=== PATIENT | female | born 1945 | race Caucasian/White ===

== ENCOUNTER 2023-08-11 16:20 | Observation (INO) ==
--- NOTE | 2023-08-11 16:55 | ED Triage Note ---
Date of Service August 11, 2023 Provider in Triage Author: Paula Brian History of Present Illness This patient was briefly evaluated while in triage. An abbreviated physical exam was performed. This patient is a 78-year-old Female who presents to the ED for evaluation of SOB. History of chronic SOB, but symptoms a lot worse recently. Was at the [place] ER 6 months ago, but they couldn't find out what was wrong. She went back to the ER in [place] about 1 week ago and was diagnosed with bronchitis. She had an appt with pulmonology this week, but the appt got changed. Still complaining of a lot of SOB and trouble bending over or with any movement because she feels like she has to gasp for air. They have a gas stove and heat their house with coal. Physical Exam GENERAL: The patient appears pale on exam. Non-toxic and in no acute distress. HEENT: Pupils equal. No obvious scleral icterus. HEART: Regular rate and rhythm. LUNGS: Clear to auscultation. No accessory muscle use. ABDOMEN: Soft, minimal tenderness to palpation. NEURO: Alert and oriented. No obvious neurological deficits on quick neuro exam. MUSCULOSKELETAL: No calf tenderness bilaterally. Initial orders for labs and / or imaging were placed and patient was placed in the waiting area until a bed is available. Please see further documentation for the full ED course. MDM / Impression Impression Impression: Acute GI bleeding, LARA (dyspnea on exertion), Hernia, hiatal
[2023-08-11 18:10] LABS: Albumin Globulin Ratio 1.2 (0.9-2); Albumin Level 4.2 gm/dl (3.4-5.0); BUN Creatinine Ratio 12.6 (10-20); Bilirubin,Total 0.5 mg/dl (0.2-1.0); Calcium 10.2 mg/dl (8.6-10.3); Creatinine Clr Calc Pharmacy 37.5 ml/min; Est GFR (African American) 50.6 ml/min; Est GFR (Non-African American) 43.7 ml/min; Globulin 3.4 gm/dl (2.5-4.0); Magnesium 1.9 mg/dl (1.7-2.4); Potassium 4.2 mmol/L (3.5-5.1); Total Protein 7.6 gm/dl (6.0-8.3)
[2023-08-11 18:16] LABS: Troponin I High Sensitivity 4.2 pg/ml (0-14)
[2023-08-11 18:20] LABS: Partial Thromboplastin Ratio 0.9; Partial Thromboplastin Time 26 Seconds (21-31); Prothrombin Time 11.2 Seconds (9.0-12.0)
[2023-08-11] MEDS ORDERED: PANTOprazole 40 MG in SYRINGE 0 ML IV ONE (18:21)
[2023-08-11] MEDS ORDERED: FAMOTIDINE 20MG IV PUSH 20 MG/5 ML SYR IV STA (18:21)
[2023-08-11 18:24] LABS: Hematocrit (blood only) 23.1 % (37.0-47.0); Mean Corpuscular Hemoglobin 15.9 pg (25.0-34.0); Mean Corpuscular Volume 61.3 fL (80.0-100.0); Platelet Count 253 K/uL (130-400); RDW Coefficient of Variation 22.9 % (11.5-14.5); RDW Standard Deviation 48.3 fL (36.4-46.3); Red Blood Count 3.77 M/uL (4.20-5.40); White Blood Count 4.49 K/ul (4.8-10.8)
[2023-08-11] MEDS ORDERED: SODIUM CHLORIDE 0.9% 250 ML IV PRN (18:25)
--- NOTE | 2023-08-11 18:25 | History & Physical Report ---
Date of Service August 11, 2023 History of Present Illness Primary Care Provider: Jazmin Khoury MD Cee Erazo is a 78 year old female who presents to the ER with Allergies Allergy/AdvReac Type Severity Reaction Status Date / Time amlodipine [From [facility]] Allergy Severe "TIGHT Verified 06/10/23 14:33 THROAT" Iodinated Contrast Media Allergy Rash Verified 06/10/23 14:33 iodine Allergy Rash Verified 06/10/23 14:33 Home Medications Medication Instructions Recorded Confirmed Type magnesium oxide 500 mg tablet 500 mg PO QPM 02/22/19 06/10/23 History calcium 600 mg capsule 600 mg PO TID 11/15/20 06/10/23 History lutein 20 mg capsule 20 mg PO QPM 11/15/20 06/10/23 History vitamin E 200 unit capsule 200 unit PO DAILY 02/11/22 06/10/23 History minoxidil 10 mg tablet 10 mg PO DAILY #90 tabs 01/21/23 06/10/23 Rx mirtazapine 45 mg tablet 45 mg PO HS #90 tabs 02/04/23 06/10/23 Rx terazosin 2 mg capsule 2 mg PO HS #90 caps 02/05/23 06/10/23 Rx levothyroxine 112 mcg tablet 112 mcg PO DAILY #90 tabs 04/17/23 06/10/23 Rx losartan 100 mg tablet 100 mg PO DAILY #90 tabs 05/01/23 06/10/23 Rx tramadol 50 mg tablet 100 mg (2 x 50 mg) PO TID PRN pain 05/29/23 06/10/23 Rx #180 tabs pantoprazole 40 mg tablet,delayed See Rx Instructions .Route 06/10/23 History release .COMPLEX PRN atenolol 100 mg tablet 100 mg PO DAILY #90 tabs 07/04/23 Rx hydrocodone 7.5 mg-acetaminophen 1 tab PO QID PRN pain #100 tabs 07/15/23 Rx 325 mg tablet alprazolam 1 mg tablet 1 mg PO TID PRN anxiety #90 tabs 07/28/23 Rx zolpidem 10 mg tablet 10 mg PO HS #30 tabs 07/28/23 Rx Past Med/Surg History Medical History Cervical radiculopathy Degenerative disc disease, cervical Osteoarthritis Anxiety and depression Tarsal tunnel syndrome "IN MY FEET" Insomnia Environmental and seasonal allergies Acid reflux Fibromyalgia Hypothyroidism Lumbar degenerative disc disease Hypertension Surgical History Nausea and vomiting after administration of anesthetic agent History of thyroidectomy, subtotal D/T OVERACTIVE THYROID History of tooth extraction History of endoscopic sinus surgery History of breast biopsy (1991) BENIGN History of total knee arthroplasty (2007) LEFT Family History Mother Hypertension Father Lung cancer Other No family history of adverse response to anesthesia Denies family history of Colon cancer Ovarian cancer Prostate cancer Myocardial infarction Breast cancer Colorectal cancer Social History Smoking Status: Never smoker Second Hand Exposure: No; Do You Dip or Chew Tobacco: No; Hx Alcohol Use: No Hx Substance Use: No Preferred Language: Croatian Communication Ability: Effective Visual Impairment: No Limitations Hearing Ability: Normal Lifestyle Coordinator Required: No Beliefs That Will Affect Care: None marital status: Current Living Situation: Spouse current occupational status: retired Feels Safe at Home: Yes Childhood Exposure to Second-Hand Smoke: Yes Diet: regular Dental Care, Regularly: No Physical Activity Frequency: Does not Exercise Seatbelt Use: always Sunscreen Use: No Do you think of yourself as: straight/heterosexual Assistive Devices: Denture - Upper and Glasses Results & Data Results & Data Vital Signs (Past 12 Hours) Vital Signs Temp Pulse Resp BP Pulse Ox O2 Del Method O2 Flow Rate 08/11/23 18:24 56 L 12 99 Room Air 08/11/23 18:24 99 Room Air 0 08/11/23 16:53 36 C L 60 18 123/64 98 Room Air PG Care Time/CCT Total # of Minutes Spent Total Time Spent with Patient: Total time spent is greater than 50% in coordination of care (as documented) at patient's floor/unit and/or counseling patient: Coding
--- NOTE | 2023-08-11 18:25 | Emergency Department Note ---
Impression & Plan Acute GI bleeding, LARA (dyspnea on exertion), Hernia, hiatal ED Provider Note NAME: MICHELLE CARLOS AGE: 78 SEX: F : 1945 ARRIVES VIA: Walk-In INFORMANT: Patient, ED PROVIDER(S): Po Reynoso DO CHIEF COMPLAINT: Shortness of breath HPI: The patient is a 78-year-old female who presented to the emergency department for an evaluation of shortness of breath. The patient has been noticing shortness of breath especially exertion over the course of the last few months. She seen her family doctor and also she has been seen at [place] emergency department twice. She was recently diagnosed with bronchitis and started on antibiotic. She states that she has not been on a course of steroids recently. She does take [id number] medications but does not take excessive amounts of NSAIDs according to her. She denies having any recent trauma. She denies having any black stool. She has had no chest pain. The patient came the emergency department today because of ongoing and worsening symptoms. ROS: See above HPI for pertinent positives & negatives. A total of 10 systems reviewed and were otherwise negative. PAST MEDICAL HISTORY: See Below PAST SURGICAL HISTORY: See Below FAMILY HISTORY: See Below SOCIAL HISTORY: See Below HOME MEDICATIONS: See Below ALLERGIES: See Below VITALS: See Below PHYSICAL EXAMINATION: GENERAL: Patient is awake alert in no acute distress patient is resting comfortably and showing no signs of anxiety EYES: The conjunctivae are clear. The pupils are round and reactive. EARS, NOSE, MOUTH AND THROAT: The nose is without any evidence of any deformity. NECK: The neck is nontender and supple. RESPIRATORY: Normal respiratory effort is noted there is no evidence of wheezing rhonchi or rales CARDIOVASCULAR: Regular rate and rhythm noted there no murmurs rubs or gallops normal S1 normal S2. GASTROINTESTINAL: The abdomen was soft and nondistended. There is no tenderness guarding rigidity. Rectal exam revealed brown stool which was strongly positive MUSCULOSKELETAL/EXTREMITIES: There is no evidence of gross deformity full range of motion is noted in the hips and shoulders. SKIN: There is no obvious evidence of any rash. There are no petechiae, pallor or cyanosis noted. NEUROLOGIC: Patient is awake alert and oriented x3. MEDICAL DECISION MAKING: The patient is a 78-year-old female who presented to the emergency department for an evaluation of shortness of breath. The patient has been having shortness of breath with exertion over the last few weeks. She was seen twice and diagnosed with bronchitis. She presented today for ongoing worsening symptoms. The patient was found to have significant anemia. I do feel this is likely causing her symptoms. Her stool was strongly heme positive. Abdominal exam was not consistent with an acute surgical abdomen. The patient was reevaluated multiple times. I discussed the patient's laboratory and radiographic studies with her. The patient was treated with Protonix and Pepcid. I discussed her condition with the on-call [facility]. They have agreed to evaluate the patient in the emergency department for further management and disposition. Blood transfusion was ordered by myself. I did consent the patient for blood transfusion. Triage Nursing notes reviewed. Prior medical records reviewed Vital Signs: reviewed and remarkable for no significant abnormalities Differential diagnosis: Reactive airway disease, pneumonia, pneumothorax, COPD, CHF, infections, cardiac ischemia, pulmonary embolism, musculoskeletal, gastrointestinal, as well as other pathologies. ER treatment provided: See below Diagnostics interpreted by me: ECG: EKG was obtained in the emergency department. My interpretation is sinus bradycardia at 58 bpm. There is no ectopy. There is no acute ST segment abnormalities noted. No previous tracing was available. Cardiac Monitoring: An order was placed for continuous cardiac monitoring. The monitor shows a rate of 55 bpm with sinus bradycardia. Laboratory studies: As stated above and show below. Imaging studies: See below. Radiographic imaging was reviewed by myself Consultation(s): I discussed this case with Dr. Sy who is on-call for the [facility] group. I have personally spent greater than 35 minutes of critical care time in the direct management of this patient. This includes bedside care, interpretation of diagnostic studies, and testing, discussion with consultants, patient, and family members, and other required patient management activities. This 35 minutes is in excess of all separately billable procedures. Past Med/Surg History Medical History Cervical radiculopathy Degenerative disc disease, cervical Osteoarthritis Anxiety and depression Tarsal tunnel syndrome "IN MY FEET" Insomnia Environmental and seasonal allergies Acid reflux Fibromyalgia Hypothyroidism Lumbar degenerative disc disease Hypertension Surgical History Nausea and vomiting after administration of anesthetic agent History of thyroidectomy, subtotal D/T OVERACTIVE THYROID History of tooth extraction History of endoscopic sinus surgery History of breast biopsy (1991) BENIGN History of total knee arthroplasty (2007) LEFT Family History Mother Hypertension Father Lung cancer Other No family history of adverse response to anesthesia Denies family history of Colon cancer Ovarian cancer Prostate cancer Myocardial infarction Breast cancer Colorectal cancer Social History Smoking Status: Never smoker Second Hand Exposure: No; Do You Dip or Chew Tobacco: No; Hx Alcohol Use: No Hx Substance Use: No Preferred Language: Rwandan Communication Ability: Effective Visual Impairment: No Limitations Hearing Ability: Normal Cafeteria Cashier Required: No Beliefs That Will Affect Care: None marital status: Current Living Situation: Spouse current occupational status: retired Feels Safe at Home: Yes Childhood Exposure to Second-Hand Smoke: Yes Diet: regular Dental Care, Regularly: No Physical Activity Frequency: Does not Exercise Seatbelt Use: always Sunscreen Use: No Do you think of yourself as: straight/heterosexual Assistive Devices: Denture - Upper and Glasses Allergies Allergies Allergy/AdvReac Type Severity Reaction Status Date / Time [place] [[place] [facility] Allergy Severe "TIGHT Verified 08/11/23 18:43 THROAT" Iodinated Contrast Media Allergy Rash Verified 08/11/23 18:43 iodine Allergy Rash Verified 08/11/23 18:43 Home Meds Home Medications Medication Instructions Recorded Confirmed magnesium oxide 500 mg tablet 500 mg PO QPM 02/22/19 08/11/23 calcium 600 mg capsule 600 mg PO TID 11/15/20 08/11/23 lutein 20 mg capsule 20 mg PO QPM 11/15/20 08/11/23 vitamin E 200 unit capsule 200 unit PO DAILY 02/11/22 08/11/23 pantoprazole 40 mg tablet,delayed 40 mg PO DAILY PRN Acid Reflux 06/10/23 08/11/23 release atenolol 100 mg tablet 100 mg PO DAILY 08/11/23 08/11/23 coenzyme Q10 100 mg capsule (Co 100 mg PO DAILY 08/11/23 08/11/23 Q-10) losartan 100 mg tablet 100 mg PO DAILY 08/11/23 08/11/23 tramadol 50 mg tablet 50 mg PO TID PRN pain 08/11/23 08/11/23 Previous Rx's Medication Instructions Recorded minoxidil 10 mg tablet 10 mg PO DAILY #90 tabs 01/21/23 mirtazapine 45 mg tablet 45 mg PO HS #90 tabs 02/04/23 terazosin 2 mg capsule 2 mg PO HS #90 caps 02/05/23 levothyroxine 112 mcg tablet 112 mcg PO DAILY #90 tabs 04/17/23 hydrocodone 7.5 mg-acetaminophen 1 tab PO QID PRN pain #100 tabs 07/15/23 325 mg tablet alprazolam 1 mg tablet 1 mg PO TID PRN anxiety #90 tabs 07/28/23 zolpidem 10 mg tablet 10 mg PO HS #30 tabs 07/28/23 Results & Data (ED) Vital Signs Vital Signs - 24 hr 08/11/23 16:53 08/11/23 18:24 08/11/23 18:24 Temperature 36 C L Temperature Source Temporal Artery Scan Pulse Rate 60 56 L Pulse Rhythm Regular Respiratory Rate 18 12 Respiratory Effort / Characteristics Non-Labored Respiratory Pattern Regular Blood Pressure 123/64 Blood Pressure Mean 83 Pulse Oximetry 98 99 99 Oxygen Delivery Method Room Air Room Air Room Air Oxygen Flow Rate 0 Sepsis Recent Fever Within 48 Hours No Sepsis New/Unexplained Change in Mental Status N/A Sepsis Action Taken by Nursing No Action Required 08/11/23 18:27 Temperature Temperature Source Pulse Rate 55 L Pulse Rhythm Respiratory Rate Respiratory Effort / Characteristics Respiratory Pattern Blood Pressure Blood Pressure Mean Pulse Oximetry Oxygen Delivery Method Oxygen Flow Rate Sepsis Recent Fever Within 48 Hours Sepsis New/Unexplained Change in Mental Status Sepsis Action Taken by Prison Medications Current Medication List: was personally reviewed by me Laboratory Data Attestation: I reviewed the patient's lab results. 08/11/23 17:36 08/11/23 17:36 Lab Results 08/11/23 08/11/23 08/11/23 Range/Units 17:34 17:36 18:22 WBC 4.49 L (4.8-10.8) K/ul RBC 3.77 L (4.20-5.40) M/uL Hgb 6.0 L* (12.0-16.0) g/dl Hct 23.1 L (37.0-47.0) % MCV 61.3 L (80.0-100.0) fL MCH 15.9 L (25.0-34.0) pg MCHC 26.0 L (32.0-36.0) g/dL RDW Std Deviation 48.3 H (36.4-46.3) fL RDW Coeff of Zia 22.9 H (11.5-14.5) % Plt Count 253 (130-400) K/uL Immature Gran % (Auto) 2.4 % Neut % (Auto) 64.8 % Lymph % (Auto) 23.2 % Smyth % (Auto) 6.5 % Eos % (Auto) 2.4 % Baso % (Auto) 0.7 % Neut # (Auto) 2.91 (1.40-6.50) K/uL Lymph # (Auto) 1.04 L (1.20-3.40) K/uL Smyth # (Auto) 0.29 (0.11-0.59) K/uL Eos # (Auto) 0.11 (0.00-0.50) K/uL Baso # (Auto) 0.03 (0.00-0.20) K/uL Immature Gran # (Auto) 0.11 (0.01-0.20) K/uL Polychromasia 1+ Hypochromasia Present Anisocytosis Present Microcytosis Present PT 11.2 (9.0-12.0) Seconds INR 1.0 (0.9-1.1) APTT 26 (21-31) Seconds PTT Ratio 0.9 Carboxyhemoglobin 1.2 % THgb Sodium 137 (136-145) mmol/L Potassium 4.2 (3.5-5.1) mmol/L Chloride 108 H (98-107) mmol/L Carbon Dioxide 22 (21-32) mmol/L Anion Gap 7 (3-11) BUN 15 (6-23) mg/dl Creatinine 1.19 (0.6-1.2) mg/dl Est Cr Clr Drug Dosing 37.5 ml/min Est GFR ( Amer) 50.6 ml/min Est GFR (Non-Af Amer) 43.7 ml/min BUN/Creatinine Ratio 12.6 (10-20) Glucose 145 H (70-99(Fasting)) mg/dl Calcium 10.2 (8.6-10.3) mg/dl Magnesium 1.9 (1.7-2.4) mg/dl Total Bilirubin 0.5 (0.2-1.0) mg/dl AST 12 L (13-39) U/L ALT 13 (7-52) U/L Alkaline Phosphatase 85 (34-104) U/L Troponin I High Sens 4.2 (0-14) pg/ml B-Natriuretic Peptide 502 H (0-100) pg/ml Total Protein 7.6 (6.0-8.3) gm/dl Albumin 4.2 (3.4-5.0) gm/dl Globulin 3.4 (2.5-4.0) gm/dl Albumin/Globulin Ratio 1.2 (0.9-2) TSH 1.589 (0.300-4.500) uIu/ml Adenovirus (PCR) Not Detected (NotDetected) B. pertussis DNA (PCR) Not Detected (NotDetected) B.parapertussis DNA PCR Not Detected (NotDetected) C. pneumoniae DNA (PCR) Not Detected (NotDetected) Coronavirus OC43 (PCR) Not Detected (NotDetected) Coronavirus HKU1 (PCR) Not Detected (NotDetected) Coronavirus 229E (PCR) Not Detected (NotDetected) SARS-CoV-2 (PCR) Not Detected (NotDetected) Coronavirus NL63 (PCR) Not Detected (NotDetected) Human Metapneumovir PCR Not Detected (NotDetected) Influenza Type A (PCR) Not Detected (NotDetected) Influenza Type B (PCR) Not Detected (NotDetected) M. pneumoniae (PCR) Not Detected (NotDetected) Parainfluenza 1 (PCR) Not Detected (NotDetected) Parainfluenza 2 (PCR) Not Detected (NotDetected) Parainfluenza 3 (PCR) Not Detected (NotDetected) Parainfluenza 4 (PCR) Not Detected (NotDetected) RSV (PCR) Not Detected (NotDetected) Entero/Rhino (PCR) Not Detected (NotDetected) Blood Type O Positive Blood Type Recheck Antibody Screen NEGATIVE Crossmatch See Detail 08/11/23 Range/Units 18:40 WBC (4.8-10.8) K/ul RBC (4.20-5.40) M/uL Hgb (12.0-16.0) g/dl Hct (37.0-47.0) % MCV (80.0-100.0) fL MCH (25.0-34.0) pg MCHC (32.0-36.0) g/dL RDW Std Deviation (36.4-46.3) fL RDW Coeff of Zia (11.5-14.5) % Plt Count (130-400) K/uL Immature Gran % (Auto) % Neut % (Auto) % Lymph % (Auto) % Smyth % (Auto) % Eos % (Auto) % Baso % (Auto) % Neut # (Auto) (1.40-6.50) K/uL Lymph # (Auto) (1.20-3.40) K/uL Smyth # (Auto) (0.11-0.59) K/uL Eos # (Auto) (0.00-0.50) K/uL Baso # (Auto) (0.00-0.20) K/uL Immature Gran # (Auto) (0.01-0.20) K/uL Polychromasia Hypochromasia Anisocytosis Microcytosis PT (9.0-12.0) Seconds INR (0.9-1.1) APTT (21-31) Seconds PTT Ratio Carboxyhemoglobin % THgb Sodium (136-145) mmol/L Potassium (3.5-5.1) mmol/L Chloride (98-107) mmol/L Carbon Dioxide (21-32) mmol/L Anion Gap (3-11) BUN (6-23) mg/dl Creatinine (0.6-1.2) mg/dl Est Cr Clr Drug Dosing ml/min Est GFR ( Amer) ml/min Est GFR (Non-Af Amer) ml/min BUN/Creatinine Ratio (10-20) Glucose (70-99(Fasting)) mg/dl Calcium (8.6-10.3) mg/dl Magnesium (1.7-2.4) mg/dl Total Bilirubin (0.2-1.0) mg/dl AST (13-39) U/L ALT (7-52) U/L Alkaline Phosphatase (34-104) U/L Troponin I High Sens (0-14) pg/ml B-Natriuretic Peptide (0-100) pg/ml Total Protein (6.0-8.3) gm/dl Albumin (3.4-5.0) gm/dl Globulin (2.5-4.0) gm/dl Albumin/Globulin Ratio (0.9-2) TSH (0.300-4.500) uIu/ml Adenovirus (PCR) (NotDetected) B. pertussis DNA (PCR) (NotDetected) B.parapertussis DNA PCR (NotDetected) C. pneumoniae DNA (PCR) (NotDetected) Coronavirus OC43 (PCR) (NotDetected) Coronavirus HKU1 (PCR) (NotDetected) Coronavirus 229E (PCR) (NotDetected) SARS-CoV-2 (PCR) (NotDetected) Coronavirus NL63 (PCR) (NotDetected) Human Metapneumovir PCR (NotDetected) Influenza Type A (PCR) (NotDetected) Influenza Type B (PCR) (NotDetected) M. pneumoniae (PCR) (NotDetected) Parainfluenza 1 (PCR) (NotDetected) Parainfluenza 2 (PCR) (NotDetected) Parainfluenza 3 (PCR) (NotDetected) Parainfluenza 4 (PCR) (NotDetected) RSV (PCR) (NotDetected) Entero/Rhino (PCR) (NotDetected) Blood Type Blood Type Recheck O Positive Antibody Screen Crossmatch Administered Medications Discontinued Medications Pantoprazole Sodium 40 mg/ (Syringe) 10 mls @ 5 mls/min IV NOW ONE Stop: 08/11/23 18:22 Last Admin: 08/11/23 19:08 Dose: 5 mls/min Documented By: LAUREN Famotidine (Pepcid 20mg Iv Push) 20 mg in 5 mls @ 2.5 mls/min IV NOW STA Stop: 08/11/23 18:22 Last Admin: 08/11/23 19:08 Dose: 2.5 mls/min Documented By: LAUREN Imaging Data Attestation: I personally reviewed and interpreted this imaging study as follows: My Impression: 1 view chest x-ray was obtained in the emergency department. My interpretation is hiatal hernia, no free air or definite infiltrate was noted. Increased markings at the left base were noted. Final report pending. Radiologist's Impression: Chest X-Ray 08/11/23 16:59 XR chest 1V portable CLINICAL HISTORY: Dyspnea TECHNIQUE: Single frontal radiograph of the chest was obtained. Comparison: None available at the time of this dictation. FINDINGS: No lines and tubes are seen. Cardiomegaly is noted. The aortic arch is calcified. The lungs are clear. No evidence of pleural effusion or pneumothorax. IMPRESSION: No acute abnormalities and in particular no radiographic evidence of pneumonia. ACT 112: Negative or not required by law. Electronically signed by: Lalit Esposito M.D. 08/11/2023 6:32 PM Discharge Plan Visit Data Chief Complaint: Shortness of Breath/Dyspnea Stated Complaint: SOB, HARD TO CATCH BREATH WHILE WALKING/BENDING ED Provider: Po Reynoso Discharge Problem: Acute GI bleeding, LARA (dyspnea on exertion), Hernia, hiatal Patient Disposition: Being Evaluated by Hospitalist Forms Stand Alone Forms: My [facility] Prescriptions Prescriptions: No Action vitamin E 200 unit capsule 200 unit PO DAILY minoxidil 10 mg tablet 10 mg PO DAILY Qty: 90 1RF Patient Comments: QPM mirtazapine 45 mg tablet 45 mg PO HS Qty: 90 3RF terazosin 2 mg capsule 2 mg PO HS Qty: 90 1RF Patient Comments: ONLY TAKES PRN HEARTBURN levothyroxine 112 mcg tablet 112 mcg PO DAILY Qty: 90 1RF Patient Comments: QAM hydrocodone-acetaminophen 7.5-325 mg tablet 1 tab PO QID PRN (Reason: pain) Qty: 100 0RF alprazolam 1 mg tablet 1 mg PO TID PRN (Reason: anxiety) Qty: 90 1RF zolpidem 10 mg tablet 10 mg PO HS Qty: 30 1RF magnesium oxide 500 mg tablet 500 mg PO QPM pantoprazole 40 mg tablet,delayed release (DR/EC) 40 mg PO DAILY PRN (Reason: Acid Reflux) Dose Instruction: TAKE 1 TABLET DAILY Rx Instructions: TAKE 1 TABLET DAILY PRN; calcium 600 mg Capsule 600 mg PO TID lutein 20 mg Capsule 20 mg PO QPM losartan 100 mg tablet 100 mg PO DAILY coenzyme Q10 [Co Q-10] 100 mg Capsule 100 mg PO DAILY atenolol 100 mg tablet 100 mg PO DAILY Patient Comments: TAKES 0.5 TAB BID tramadol 50 mg tablet 50 mg PO TID PRN (Reason: pain) Referrals Referrals: Jazmin Khoury MD [Primary Care Provider] -
[2023-08-11 18:26] LABS: Thyroid Stimulating Hormone 1.589 uIu/ml (0.300-4.500)
--- NOTE | 2023-08-11 18:34 | XRay Report ---
XR chest 1V portable CLINICAL HISTORY: Dyspnea TECHNIQUE: Single frontal radiograph of the chest was obtained. Comparison: None available at the time of this dictation. FINDINGS: No lines and tubes are seen. Cardiomegaly is noted. The aortic arch is calcified. The lungs are clear . No evidence of pleural effusion or pneumothorax. IMPRESSION: No acute abnormalities and in particular no radiographic evidence of pneumonia. ACT 112: Negative or not required by law. Electronically signed by: Lalit Esposito M.D. 08/11/2023 6:32 PM
[2023-08-11 18:39] LABS: Anisocytosis Present; Basophils # (auto) 0.03 K/uL (0.00-0.20); Basophils % (auto) 0.7 %; Eosinophils # (auto) 0.11 K/uL (0.00-0.50); Eosinophils % (auto) 2.4 %; Hypochromasia Present; Immature Granulocytes # (auto) 0.11 K/uL (0.01-0.20); Immature Granulocytes % (auto) 2.4 %; Lymphocytes # (auto) 1.04 K/uL (1.20-3.40); Lymphocytes % (auto) 23.2 %; Microcytosis Present; Monocytes # (auto) 0.29 K/uL (0.11-0.59); Monocytes % (auto) 6.5 %; Neutrophils # (auto) 2.91 K/uL (1.40-6.50); Neutrophils % (auto) 64.8 %; Polychromasia 1+
[2023-08-11 18:39] LABS: Adenovirus PCR Not Detected (NotDetected); Bordetella parapertussis PCR Not Detected (NotDetected); Bordetella pertussis PCR Not Detected (NotDetected); Chlamydia pneumoniae PCR Not Detected (NotDetected); Coronavirus 229E PCR Not Detected (NotDetected); Coronavirus CoV-2 (COVID19)PCR Not Detected (NotDetected); Coronavirus HKU1 PCR Not Detected (NotDetected); Coronavirus NL63 PCR Not Detected (NotDetected); Coronavirus OC43PCR Not Detected (NotDetected); Human Metapneumovirus PCR Not Detected (NotDetected); Influenza A PCR Not Detected (NotDetected); Influenza B PCR Not Detected (NotDetected); Mycoplasma pneumoniae PCR Not Detected (NotDetected); Parainfluenza Virus 1 PCR Not Detected (NotDetected); Parainfluenza Virus 2 PCR Not Detected (NotDetected); Parainfluenza Virus 3 PCR Not Detected (NotDetected); Parainfluenza Virus 4 PCR Not Detected (NotDetected); Respiratory Syncytial VirusPCR Not Detected (NotDetected); Rhinovirus/Enterovirus PCR Not Detected (NotDetected)
[2023-08-11 20:06] LABS: Appearance Urine Clear (Clear); Bacteria Urine Automated Negative (Negative); Bilirubin Urine Negative (Negative); Blood Urine Negative (Negative); Cast Urine Automated 0 /lpf (0-5); Color Urine Yellow; Glucose Urine UA Negative (Negative); Ketones Urine Negative (Negative); Leukocyte Esterase Urine Trace (Negative); Nitrite Urine Negative (Negative); Protein Urine Negative (Negative); RBC Urine Automated 0-4 /hpf (0-4); Specific Gravity Urine 1.004 (1.000-1.030); Urobilinogen Urine Negative (Negative)
--- NOTE | 2023-08-11 20:13 | History & Physical Report ---
Date of Service August 11, 2023 Assessment & Plan (1) LARA (dyspnea on exertion): Plan: LARA x 1.5 years Acute worsening in setting of bronchitis; patient was recently at [place] [facility] on 08/06 and discharged on Augmentin 825-125 mg BID, which she has been taking x 5 days No leukocytosis; afebrile CXR on 08/11 revealed NAF without evidence of pneumonia BNP elevated at 502 BioFire negative EKG revealed sinus bradycardia at 58 bpm; QTc 420 Patient is not currently on diuretics, and reports she has not had an echo in the past Echo ordered, pending Continuous telemetry monitoring Supplemental oxygen as needed to maintain SpO2 >94%; no at home oxygen use or CPAP Consider adding daily diuretics pending echo / blood transfusion A.m. CBC, BMP (2) Anemia: Plan: Hgb 6.0 and Hct 23.1 No recent falls, trauma, dark/tarry stools, or signs of active bleeding CT abdomen/pelvis ordered, pending Iron panel ordered, pending Pantoprazole 40 mg and famotidine 20 mg IV given in the ED 2u PRBCs transfused in the ED Repeat H&H to be drawn 1 hour after the second unit is given Unclear etiology; ?anemia of chronic disease Follow daily CBC (3) Arthritis: Plan: Hx of chronic pain Hold hydrocodoneacetaminophen as patient says she has not been needing it QID prn Acetaminophen 650 mg p.o. q4h as needed for pain Tramadol 50 mg p.o. TID as needed for breakthrough pain (4) Insomnia, persistent: Plan: Continue alprazolam, lutein, and zolpidem at night (5) Hypothyroidism: Plan: Continue levothyroxine (6) Anxiety: Plan: Continue alprazolam as needed for anxiety (7) CKD (chronic kidney disease) stage 3, GFR 30-59 ml/min: Plan: BUN 15, creatinine 1.19 (baseline 1.12), and EGFR 43.7 on arrival Avoid nephrotoxic agents Monitor daily BMP (8) Hypertension: Plan: Continue atenolol Okay to continue losartan Plan Disposition: Admit to PCU telemetry Full code AHA diet (easy to chew), 1800 mL fluid restriction pending echo VTE PPx: SCDs (hold chemical DVT PPx until after blood transfusion) History of Present Illness Chief Complaint: Shortness of breath/dyspnea Primary Care Provider: Jazmin Khoury MD Cee is a pleasant 78-year-old female with PMH of fibromyalgia, hypothyroidism, acid reflux, anxiety, arthritis, CKD stage III, depression, eczema, insomnia, and HLD. She presented for worsening SOB with exertion with an acute exacerbation over the past couple weeks. She has had LARA progressively worsening over the past 1.5 years. It is exacerbated by taking steps, bending, and walking. She denies chest pain. No ambulatory assist devices. Of note, she was at the ED in [place] for fever and productive cough on 08/06 and was diagnosed with bronchitis and started on amoxicillin 825mg q12h, which she has been taking. She was told to follow-up with a information security. Her fever and productive cough have largely resolved, but she notes that she is still having LARA. No at home oxygen use or CPAP. No sick contacts. She reports she has not been eating/drinking well since having dental work done; only doing soft foods for her teeth. She does not believe she has had any prior echocardiograms. Patient is mildly bradycardic at 55 bpm; vitals otherwise stable. ED course: Pantoprazole 40 mg IV Pepcid 20 mg IV NSS 250 mL Blood transfusion 2u pRBCs started in the ED ROS: Patient endorses fever (resolved), productive cough (yellow sputum production), sinus pressure, nasal drainage, dizziness, lightheadedness, LARA, numbness/tingling in left wrist (secondary to carpal tunnel). Patient denies CABRERA, chest pain, chest palpitations, abdominal pain, N/V/D, urinary s/s, burning with urination, blood in the urine or stool, melena, dark tarry stool, or numbness & tingling down legs. Patient denies PMH of ND, CVA, DVT/PE, diabetes, and cancer. Allergies Allergy/AdvReac Type Severity Reaction Status Date / Time amlodipine [From [facility]] Allergy Severe "TIGHT Verified 08/11/23 18:43 THROAT" Iodinated Contrast Media Allergy Rash Verified 08/11/23 18:43 iodine Allergy Rash Verified 08/11/23 18:43 Home Medications Medication Instructions Recorded Confirmed Type magnesium oxide 500 mg tablet 500 mg PO QPM 02/22/19 08/11/23 History calcium 600 mg capsule 600 mg PO TID 11/15/20 08/11/23 History lutein 20 mg capsule 20 mg PO QPM 11/15/20 08/11/23 History vitamin E 200 unit capsule 200 unit PO DAILY 02/11/22 08/11/23 History minoxidil 10 mg tablet 10 mg PO DAILY #90 tabs 01/21/23 08/11/23 Rx mirtazapine 45 mg tablet 45 mg PO HS #90 tabs 02/04/23 08/11/23 Rx terazosin 2 mg capsule 2 mg PO HS #90 caps 02/05/23 08/11/23 Rx levothyroxine 112 mcg tablet 112 mcg PO DAILY #90 tabs 04/17/23 08/11/23 Rx pantoprazole 40 mg tablet,delayed 40 mg PO DAILY PRN Acid Reflux 06/10/23 08/11/23 History release hydrocodone 7.5 mg-acetaminophen 1 tab PO QID PRN pain #100 tabs 07/15/23 08/11/23 Rx 325 mg tablet alprazolam 1 mg tablet 1 mg PO TID PRN anxiety #90 tabs 07/28/23 08/11/23 Rx zolpidem 10 mg tablet 10 mg PO HS #30 tabs 07/28/23 08/11/23 Rx atenolol 100 mg tablet 100 mg PO DAILY 08/11/23 08/11/23 History coenzyme Q10 100 mg capsule (Co 100 mg PO DAILY 08/11/23 08/11/23 History Q-10) losartan 100 mg tablet 100 mg PO DAILY 08/11/23 08/11/23 History tramadol 50 mg tablet 50 mg PO TID PRN pain 08/11/23 08/11/23 History Past Med/Surg History Medical History (Updated 08/11/23 @ 20:12 by Vance Alexandre PA-C) Cervical radiculopathy Degenerative disc disease, cervical Osteoarthritis Anxiety and depression Tarsal tunnel syndrome "IN MY FEET" Insomnia Environmental and seasonal allergies Acid reflux Fibromyalgia Hypothyroidism Lumbar degenerative disc disease Hypertension Surgical History Nausea and vomiting after administration of anesthetic agent History of thyroidectomy, subtotal D/T OVERACTIVE THYROID History of tooth extraction History of endoscopic sinus surgery History of breast biopsy (1991) BENIGN History of total knee arthroplasty (2007) LEFT Family History Mother Hypertension Father Lung cancer Other No family history of adverse response to anesthesia Denies family history of Colon cancer Ovarian cancer Prostate cancer Myocardial infarction Breast cancer Colorectal cancer Social History Smoking Status: Never smoker Second Hand Exposure: No; Do You Dip or Chew Tobacco: No; Hx Alcohol Use: Yes Alcohol type: wine Hx Substance Use: No Preferred Language: Spanish Communication Ability: Effective Visual Impairment: No Limitations Hearing Ability: Normal Engineering Project Designer Required: No Beliefs That Will Affect Care: None marital status: Current Living Situation: Spouse current occupational status: retired Feels Safe at Home: Yes Childhood Exposure to Second-Hand Smoke: Yes Diet: regular Dental Care, Regularly: No Physical Activity Frequency: Does not Exercise Seatbelt Use: always Sunscreen Use: No Do you think of yourself as: straight/heterosexual Assistive Devices: None Review of Systems Review of Systems: See HPI above Physical Exam Physical Exam: General: no acute distress; pleasant affect; non-toxic appearing; well- nourished; cooperative HEENT: normocephalic, atraumatic; frontal/maxillary sinus NTP; no scleral icterus; PERRLA w/ EOMs intact; moist mucus membrane; vision and hearing grossly intact Neck: supple; no JVD; no lymphadenopathy; trachea midline Skin: warm, dry without signs of tenting; no cyanosis; no rashes, bruising, lesions, or erythema noted CV: chest wall NTP; RRR; S1/S2 normal; no murmurs/rubs/gallops; pulses intact and symmetric at radial, DP, and PT Lungs: Mild respiratory distress, gasping for air after sitting up in bed and bending; symmetrical chest wall expansion; clear breath sounds across all lung hudson w/o adventitious sounds; no wheezing ABD: Soft, NTP; BS present; no rebound/guarding; no ascites; no distention; negative CVA tenderness; no rashes or bruising on abdomen or back MSK: no tics or fasciculations; nonpitting edema in the LEs B/L, nonerythematous Neuro: A&Ox3; normal mood and affect; fluent speech; CN2-12 intact; no focal deficits; sensation grossly intact Results & Data Results & Data Vital Signs (Past 12 Hours) Vital Signs Temp Pulse Resp BP Pulse Ox O2 Del Method O2 Flow Rate 08/11/23 18:27 55 L 08/11/23 18:24 56 L 12 99 Room Air 08/11/23 18:24 99 Room Air 0 08/11/23 16:53 36 C L 60 18 123/64 98 Room Air Laboratory Results Abnormal lab results 08/11/23 08/11/23 Range/Units 17:36 18:22 WBC 4.49 L (4.8-10.8) K/ul RBC 3.77 L (4.20-5.40) M/uL Hgb 6.0 L* (12.0-16.0) g/dl Hct 23.1 L (37.0-47.0) % MCV 61.3 L (80.0-100.0) fL MCH 15.9 L (25.0-34.0) pg MCHC 26.0 L (32.0-36.0) g/dL RDW Std Deviation 48.3 H (36.4-46.3) fL RDW Coeff of Zia 22.9 H (11.5-14.5) % Lymph # (Auto) 1.04 L (1.20-3.40) K/uL Chloride 108 H (98-107) mmol/L Glucose 145 H (70-99(Fasting)) mg/dl AST 12 L (13-39) U/L B-Natriuretic Peptide 502 H (0-100) pg/ml Crossmatch See Detail Diagnostic Findings Chest X-Ray 08/11/23 16:59 XR chest 1V portable CLINICAL HISTORY: Dyspnea TECHNIQUE: Single frontal radiograph of the chest was obtained. Comparison: None available at the time of this dictation. FINDINGS: No lines and tubes are seen. Cardiomegaly is noted. The aortic arch is calcified. The lungs are clear. No evidence of pleural effusion or pneumothorax. IMPRESSION: No acute abnormalities and in particular no radiographic evidence of pneumonia. ACT 112: Negative or not required by law. Electronically signed by: Lalit Esposito M.D. 08/11/2023 6:32 PM Code Status & VTE Plan Code Status Full code VTE Prophylaxis Plan VTE Prophylaxis will be ordered: Yes Supervising Physician Co-Signing Physician Notes Attending addendum: I have physically seen this patient, have supervised the JUICE's activities, and agree with the H&P unless as otherwise noted. Assessment and Plan: Symptomatic anemia- The patient will be admitted to telemetry for serial cardiac enzymes, serial EKG's, cardiac rhythm monitoring and a 2-D echocardiogram with Dopplers. Hemoglobin 6.0 on admission, with hypochromic microcytic indices Primary symptom has been out of dyspnea on exertion for the past year and a half BioFire test negative N.p.o. except essential medications Hemoccult stools Peripheral smear Received 2 units PRBCs as ordered by the ED,, and then check initial H&H 1 hour afterwards Suspect will need Lasix IV between units or after second unit, will follow clinically for potential need No signs of significant recent GI bleed No history of NSAID use May need bone marrow assessment Check reticulocyte count, iron studies, B12 and folate Status post pantoprazole 40 mg IV and famotidine 20 mg IV in ED Continue pantoprazole 40 mg IV twice daily Consult gastroenterology CKD stage III- Creatinine 1.19, close to baseline of 1.1 to Follow laboratory serially Hypertension- Continue atenolol and losartan Remaining orders and notations as noted PG Care Time/CCT Total # of Minutes Spent Total Time Spent with Patient: Total time spent is greater than 50% in coordination of care (as documented) at patient's floor/unit and/or counseling patient: Coding [place] [address] INT INP/OBS CARE 2/55MIN Patient Type Established Medical Decision Making Moderate Complexity Diagnoses LARA (dyspnea on exertion) R06.09 Anemia D64.9 Arthritis M19.90 Insomnia, persistent G47.00 Hypothyroidism E03.9 Anxiety F41.9 CKD (chronic kidney disease) stage 3, GFR 30-59 ml/min N18.3 Hypertension I10
[2023-08-11] MEDS ORDERED: ACETAMINOPHEN 325 MG TAB PO PRN (21:33)
[2023-08-11] MEDS ORDERED: NON-FORMULARY MEDICATION (Lutein 20 mg Capsule) PO SCH (21:33)
[2023-08-11] MEDS ORDERED: PANTOprazole 40 MG TAB PO PRN (21:33)
[2023-08-11] MEDS ORDERED: traMADol HCL 50 MG TABLET PO PRN (21:33)
[2023-08-11] MEDS: ALPRAZolam 0.5 MG TABLET PO PRN (22:35)
[2023-08-11] MEDS: TERAZOSIN HCL 1 MG CAP PO SCH (22:35)
[2023-08-11 23:06] LABS: Ferritin 7.7 ng/ml (8-388)
--- NOTE | 2023-08-12 01:25 | CT Scan Report ---
Exam(s): CT ABDOMEN + PELVIS Without Contrast EXAM: CT Abdomen and Pelvis Without Intravenous Contrast CLINICAL HISTORY: Reason for exam: Retroperitoneal bleed r/o. TECHNIQUE: Axial computed tomography images of the abdomen and pelvis without intravenous contrast. Automated exposure control was utilized for the study. A dose lowering technique was utilized adhering to the principles of ALARA. COMPARISON: No relevant prior studies available. FINDINGS: Lung bases: Unremarkable. No mass. No consolidation. Mediastinum: Moderate hiatal hernia which contains a proximal stomach. ABDOMEN: Liver: Unremarkable. No focal hepatic lesion. Gallbladder and bile ducts: Unremarkable. No calcified stones. No ductal dilation. Pancreas: Unremarkable. No ductal dilation. Spleen: Unremarkable. No splenomegaly. Adrenals: Unremarkable. No mass. Kidneys and ureters: Parapelvic cysts. No hydronephrosis or obstructive uropathy. Stomach and bowel: Diverticulosis, without acute diverticulitis. No small bowel obstruction. No free intraperitoneal air. PELVIS: Appendix: No findings to suggest acute appendicitis. Bladder: Decompressed urinary bladder. No stones. Reproductive: Calcified left adnexal/ovarian lesion measures 2.2 x 1.7 cm. ABDOMEN and PELVIS: Intraperitoneal space: Unremarkable. No free air. No significant fluid collection. Bones/joints: Degenerative changes of the spine. No acute fracture. No dislocation. Soft tissues: Unremarkable. Vasculature: Atherosclerotic changes of the aorta. No abdominal aortic aneurysm. Lymph nodes: Unremarkable. No enlarged lymph nodes. IMPRESSION: 1. No hydronephrosis or obstructive uropathy. 2. Calcified left adnexal/ovarian lesion measures 2.2 x 1.7 cm. 3. Moderate hiatal hernia which contains a proximal stomach. 4. Diverticulosis, without acute diverticulitis. No small bowel obstruction. No free intraperitoneal air. Electronically signed by: Jani Vivar MD 08/12/23 01:25 AM
[2023-08-12] MEDS: ZOLPIDEM TARTRATE 10 MG TAB PO SCH ×2 (01:56→22:33)
[2023-08-12] MEDS: MIRTAZAPINE SOLTAB 15 MG PO SCH ×2 (01:57→22:33)
[2023-08-12 04:05] LABS: BUN Creatinine Ratio 11.3 (10-20); Calcium 9.9 mg/dl (8.6-10.3); Creatinine Clr Calc Pharmacy 38.8 ml/min; Est GFR (African American) 52.8 ml/min; Est GFR (Non-African American) 45.5 ml/min; Potassium 3.9 mmol/L (3.5-5.1)
[2023-08-12 04:56] LABS: Hematocrit (blood only) 27.5 % (37.0-47.0); Hemoglobin 7.8 g/dl (12.0-16.0); Mean Corpuscular Hemoglobin 19.1 pg (25.0-34.0); Mean Corpuscular Hgb Conc 28.4 g/dL (32.0-36.0); Mean Corpuscular Volume 67.2 fL (80.0-100.0); Platelet Count 221 K/uL (130-400); RDW Standard Deviation 64.9 fL (36.4-46.3); Red Blood Count 4.09 M/uL (4.20-5.40); White Blood Count 4.21 K/ul (4.8-10.8)
[2023-08-12 04:59] LABS: Basophils # (auto) 0.03 K/uL (0.00-0.20); Basophils % (auto) 0.7 %; Eosinophils # (auto) 0.07 K/uL (0.00-0.50); Eosinophils % (auto) 1.7 %; Hypochromasia Present; Immature Granulocytes # (auto) 0.13 K/uL (0.01-0.20); Immature Granulocytes % (auto) 3.1 %; Lymphocytes # (auto) 1.11 K/uL (1.20-3.40); Lymphocytes % (auto) 26.4 %; Monocytes % (auto) 7.1 %; Neutrophils # (auto) 2.57 K/uL (1.40-6.50)
[2023-08-12] MEDS: LEVOTHYROXINE SODIUM 112 MCG TABLET PO SCH (05:58)
[2023-08-12] MEDS: ATENOLOL 50 MG TABLET PO SCH (08:29)
[2023-08-12] MEDS: LOSARTAN POTASSIUM 50 MG TAB PO SCH (08:29)
--- NOTE | 2023-08-12 08:37 | Hospitalist Progress Note ---
Date of Service August 12, 2023 Assessment & Plan (1) LARA (dyspnea on exertion): Plan: LARA x 1.5 years. Patient reported acute worsening in setting of bronchitis and was recently at [facility] on 08/06 and discharged on Augmentin 825-125 mg BID, which she has been taking x 5 days and reports similar previously No WBC elevation on admit, CXR w/o evidence for pneumonia Continuous tele monitoring. Trop neg on admit but noting possible prior septal infarct BNP 502, ECHO done this morning but not yet read -not on diuretics at baseline TSH wnl (noting patient s/p removal in her 20s) Biofire negative 08/12 NO NSAID use reported, no blood in urine/stool noted by patient or alternating bowel habits/weight loss, but ongoing fatigue/weakness >1 year in duration CTAP obtained to r/o retroperitoneal bleed w/ no hydro or obstructive uropathy. Calcified L adnexal/ovarian lesion measuring 2.2 x 1.7cm (will check ca 125 w/ am labs) MODERATE hiatal hernia which contains proximal stomach. No SBO or free air. Diverticulosis w/o acute diverticulitis noted Appears has been to PCP this fall for complaints for LARA suspected due to deconditioning. Last CBC in our system at least noting 2019 when hgb 11.9 - [facility] did NOT get any labs x past 2 ER visits Did apparently have recent dental work prior to her fever/worsened SOB, had gotten course augmentin as above. ECHO pending but if any significant valvular abn, consider blood cultures. BNP 502. Trop 4.2 EKG w/ sinus clara, 58bpm, low voltage QRS. Septal infarct undetermined age. s/p 2u PRBC w/ repeat hgb 6.0--> 7.8. Renal function normalized but suspect needing dose of lasix w/ such, ?anything given. Lasix 40mg IV x 1 provided. Iron panel w/ iron 14, TIBC 398, transferrin % sat 4, ferritin 7.7. -Will give dose of Venofer IV as well Folate/B12 checked, B12 borderline and PO replacement added daily Repeat hgb this afternoon stable at 8.3 and will continue to monitor, check sooner if any bleeding Empiric PPI BID (takes prn at home but notes hx reflux/hiatal hernia) - checking fecal occult w/ next BM as able GI consulted, likely no inpatient scope given longstanding issue but appreciate recs/assistance. Never had screening c-scope in the past, is past due Of note, CTAP w/ L adenexal/ovarian lesion, denies any vaginal bleeding but also denied any prior HYBRID TECHNOLOGIST care in the past. CA 125 added to AM labs and will require follow up at [facility]. Remaining stable on room air, 97% this afternoon PT/OT evals added given significant weakness Monitor labs on repeat and continue to monitor on tele for any arrythmia (denies any palpitations to note) (2) Anemia: Plan: H/h 02/14.1 on admit CTAP as above Iron panel w/ significant iron deficiency, Added B12/folate, B12 borderline and PO replacement ordered and folate wnl Venofer x1 ordered and did get 2u PRBC Hgb 8.3 this afternoon on repeat, no bleeding reported Fecal occult ordered for completeness TSH wnl Monitor ECHO results LDH not elevated GI consulted as above Monitor for any bleeding/repeat CBC sooner but likely wait til AM given stability/long standing issue (3) Arthritis: Plan: Hx of chronic pain and on tylenol/hydrocodone as needed Tylenol, tramadol available as needed, can add hydrocodone if needed but reports does not take frequently at all, only gets very short course as needed (4) Insomnia, persistent: Plan: Continue alprazolam, lutein, and zolpidem at night (5) Hypothyroidism: Plan: Continue levothyroxine TSH wnl Of note, prior surgery for removal, consider checking T4/T3 w next labs (6) Anxiety: Plan: Continue alprazolam as needed for anxiety (7) CKD (chronic kidney disease) stage 3, GFR 30-59 ml/min: Plan: BUN 15, creatinine 1.19 (baseline 1.12), and EGFR 43.7 on arrival Improved w/ blood replacement, lasix given to prevent overload and Venofer ordered as above Renal dose meds/avoid nephrotoxins, BMP in AM (8) Hypertension: Plan: Continue atenolol, losartan daily BP 118/64, monitor ECHO results for need for medication changes if evidence for reduced EF Plan continued inpatient stay, SCDs ordered for DVT prophylaxis (no evidence for DVT on exam at present) until ensuring no need for intervention/scope/further bleeding PT/OT evals, GI consult pending as above possible dc tomrrow w/ outpatient f/u for GI/HYBRID TECHNOLOGIST Admission and Anticipated Discharge Date Admission Date: August 11, 2023 Subjective Eval this afternoon in ER, reports feeling a little better than admission but still with fatigue. NO BLEEDING reported in urine or stool. Sometimes a little darker if she eats a lot of chocolate. No alternating bowel movements. Never had c-scope. No recent labs at [facility] or our system for comparison. NO NSAID use, only uses tylenol and opiates for pain control through Dr Khoury. Never had any prior HYBRID TECHNOLOGIST care. Noting she hasn't really left the house much over the past year or so due to fatigue/weakness. Sent by eye dr to PCP for concerns about heart attack and reports when to PCP office who wasn't able to see and went back to [facility] and they did nothing. She had some spots in her vision and eye surgery by Dr Blanco which she notes other loom mechanic wasn't happy about. Notes she has a hernia/reflux at baseline. Also has small umbilical hernia but denies this ever being warm/red/painful but does push out a little when she bends over. No chest pain reported or palpitations. Discussd low iron studies as well as borderline low B12 however folate appearing normal. TSH wnl and reports she had this removed for lumps in past before any imaging was available in her 20s. Physical Exam Physical Exam: General: chronically ill appearing female sitting up in bed eating lunch, NAD HEENT; head atraumatic, normocephalic, pupils equal but hx surgery (also eyelid surgery) scar noted from prior thyroidectomy Resp: even/unlabored, no w/c/r, on room air CV: RRR, slightly tachy, occasional PVC on monitor, +systolic murmur, quiet S2, no pitting edema/calf tenderness, pulse palpable GI: +BS, soft/NT, umbilical hernia w/o evidence for strangulation or incarceration/warmth or redness : no abdul MSK/Neuro/Psych: generalized weakness but nonfocal, no slurred speech/facial droop, forgetfullness at times but alert/oriented and answering questions appropriately Results & Data Results & Data Vital Signs (Past 12 Hours) Vital Signs Temp Pulse Pulse Resp BP BP Pulse Ox 08/12/23 07:34 08/12/23 07:34 62 18 163/75 H 97 12/19/23 06:54 54 L 08/12/23 06:10 50 L 16 159/86 H 96 08/12/23 01:55 61 16 159/86 H 97 08/12/23 00:55 55 L 16 137/46 L 97 08/11/23 23:55 52 L 16 127/71 98 08/11/23 23:25 36.8 C 54 L 18 128/60 98 08/11/23 23:25 36.8 C 54 L 16 128/60 98 08/11/23 23:25 51 L 16 129/60 98 08/11/23 23:10 36.8 C 52 L 18 125/60 99 08/11/23 22:54 36.8 C 49 L 18 148/62 H 98 08/11/23 22:52 36.8 C 46 L 18 138/77 99 08/11/23 22:05 36.8 C 54 L 19 149/72 H 98 08/11/23 21:33 08/11/23 21:05 36.5 C 50 L 19 149/72 H 98 08/11/23 20:35 36.6 C 51 L 16 144/63 H 97 Pulse Ox O2 Del Method O2 Del Method 08/12/23 07:34 94 Room Air 08/12/23 07:34 Room Air 08/12/23 06:54 08/12/23 06:10 Room Air 08/12/23 01:55 08/12/23 00:55 08/11/23 23:55 08/11/23 23:25 08/11/23 23:25 Room Air 08/11/23 23:25 08/11/23 23:10 08/11/23 22:54 08/11/23 22:52 08/11/23 22:05 08/11/23 21:33 99 Room Air 08/11/23 21:05 08/11/23 20:35 Laboratory Results 08/12/23 08/12/23 08/11/23 Range/Units 12:47 03:07 19:30 WBC 4.21 L (4.8-10.8) K/ul RBC 4.09 L (4.20-5.40) M/uL Hgb 8.3 L 7.8 L (12.0-16.0) g/dl Hct 27.9 L 27.5 L (37.0-47.0) % MCV 67.2 L D (80.0-100.0) fL MCH 19.1 L (25.0-34.0) pg MCHC 28.4 L (32.0-36.0) g/dL RDW Std Deviation 64.9 H (36.4-46.3) fL RDW Coeff of Zia 28.0 H (11.5-14.5) % Plt Count 221 (130-400) K/uL Immature Gran % (Auto) 3.1 % Neut % (Auto) 61.0 % Lymph % (Auto) 26.4 % [place] % (Auto) 7.1 % Eos % (Auto) 1.7 % Baso % (Auto) 0.7 % Neut # (Auto) 2.57 (1.40-6.50) K/uL Lymph # (Auto) 1.11 L (1.20-3.40) K/uL [place] # (Auto) 0.30 (0.11-0.59) K/uL Eos # (Auto) 0.07 (0.00-0.50) K/uL Baso # (Auto) 0.03 (0.00-0.20) K/uL Immature Gran # (Auto) 0.13 (0.01-0.20) K/uL Polychromasia Hypochromasia Present Anisocytosis Microcytosis PT (9.0-12.0) Seconds INR (0.9-1.1) APTT (21-31) Seconds PTT Ratio Carboxyhemoglobin % THgb Sodium 141 (136-145) mmol/L Potassium 3.9 (3.5-5.1) mmol/L Chloride 111 H (98-107) mmol/L Carbon Dioxide 24 (21-32) mmol/L Anion Gap 6 (3-11) BUN 13 (6-23) mg/dl Creatinine 1.15 (0.6-1.2) mg/dl Est Cr Clr Drug Dosing 38.8 ml/min Est GFR ( Amer) 52.8 ml/min Est GFR (Non-Af Amer) 45.5 ml/min BUN/Creatinine Ratio 11.3 (10-20) Glucose 133 H (70-99(Fasting)) mg/dl Calcium 9.9 (8.6-10.3) mg/dl Magnesium (1.7-2.4) mg/dl Iron (35-150) mcg/dl TIBC (250-450) mcg/dl Unsaturated IBC (155-355) mcg/dl Transferrin % Sat (15-50) % Ferritin (8-388) ng/ml Total Bilirubin (0.2-1.0) mg/dl AST (13-39) U/L ALT (7-52) U/L Alkaline Phosphatase (34-104) U/L Lactate Dehydrogenase 155 (86-244) U/L Troponin I High Sens (0-14) pg/ml B-Natriuretic Peptide (0-100) pg/ml Total Protein (6.0-8.3) gm/dl Albumin (3.4-5.0) gm/dl Globulin (2.5-4.0) gm/dl Albumin/Globulin Ratio (0.9-2) Vitamin B12 187 (180-914) pg/ml Folate 11.39 (>5.38) ng/ml TSH (0.300-4.500) uIu/ml Urine Color Yellow Urine Appearance Clear (Clear) Urine pH 7.0 (4.5-7.5) Ur Specific [place] 1.004 (1.000-1.030) Urine Protein Negative (Negative) Urine Glucose (UA) Negative (Negative) Urine Ketones Negative (Negative) Urine Blood Negative (Negative) Urine Nitrite Negative (Negative) Urine Bilirubin Negative (Negative) Urine Urobilinogen Negative (Negative) Ur Leukocyte Esterase Trace H (Negative) Urine WBC (Auto) 1-5 (0-5) /hpf Urine RBC (Auto) 0-4 (0-4) /hpf U Hyaline Cast (Auto) 0 (0-5) /lpf U Epithel Cells (Auto) 10-20 H (0-5) /lpf Urine Bacteria (Auto) Negative (Negative) Adenovirus (PCR) (NotDetected) B. pertussis DNA (PCR) (NotDetected) B.parapertussis DNA PCR (NotDetected) C. pneumoniae DNA (PCR) (NotDetected) Coronavirus OC43 (PCR) (NotDetected) Coronavirus HKU1 (PCR) (NotDetected) Coronavirus 229E (PCR) (NotDetected) SARS-CoV-2 (PCR) (NotDetected) Coronavirus NL63 (PCR) (NotDetected) Human Metapneumovir PCR (NotDetected) Influenza Type A (PCR) (NotDetected) Influenza Type B (PCR) (NotDetected) M. pneumoniae (PCR) (NotDetected) Parainfluenza 1 (PCR) (NotDetected) Parainfluenza 2 (PCR) (NotDetected) Parainfluenza 3 (PCR) (NotDetected) Parainfluenza 4 (PCR) (NotDetected) RSV (PCR) (NotDetected) Entero/Rhino (PCR) (NotDetected) Blood Type Blood Type Recheck Antibody Screen Crossmatch 08/11/23 08/11/23 08/11/23 Range/Units 18:40 18:22 17:36 WBC 4.49 L (4.8-10.8) K/ul RBC 3.77 L (4.20-5.40) M/uL Hgb 6.0 L* (12.0-16.0) g/dl Hct 23.1 L (37.0-47.0) % MCV 61.3 L (80.0-100.0) fL MCH 15.9 L (25.0-34.0) pg MCHC 26.0 L (32.0-36.0) g/dL RDW Std Deviation 48.3 H (36.4-46.3) fL RDW Coeff of Zia 22.9 H (11.5-14.5) % Plt Count 253 (130-400) K/uL Immature Gran % (Auto) 2.4 % Neut % (Auto) 64.8 % Lymph % (Auto) 23.2 % [place] % (Auto) 6.5 % Eos % (Auto) 2.4 % Baso % (Auto) 0.7 % Neut # (Auto) 2.91 (1.40-6.50) K/uL Lymph # (Auto) 1.04 L (1.20-3.40) K/uL [place] # (Auto) 0.29 (0.11-0.59) K/uL Eos # (Auto) 0.11 (0.00-0.50) K/uL Baso # (Auto) 0.03 (0.00-0.20) K/uL Immature Gran # (Auto) 0.11 (0.01-0.20) K/uL Polychromasia 1+ Hypochromasia Present Anisocytosis Present Microcytosis Present PT 11.2 (9.0-12.0) Seconds INR 1.0 (0.9-1.1) APTT 26 (21-31) Seconds PTT Ratio 0.9 Carboxyhemoglobin 1.2 % THgb Sodium 137 (136-145) mmol/L Potassium 4.2 (3.5-5.1) mmol/L Chloride 108 H (98-107) mmol/L Carbon Dioxide 22 (21-32) mmol/L Anion Gap 7 (3-11) BUN 15 (6-23) mg/dl Creatinine 1.19 (0.6-1.2) mg/dl Est Cr Clr Drug Dosing 37.5 ml/min Est GFR ( Amer) 50.6 ml/min Est GFR (Non-Af Amer) 43.7 ml/min BUN/Creatinine Ratio 12.6 (10-20) Glucose 145 H (70-99(Fasting)) mg/dl Calcium 10.2 (8.6-10.3) mg/dl Magnesium 1.9 (1.7-2.4) mg/dl Iron 14 L (35-150) mcg/dl TIBC 398 (250-450) mcg/dl Unsaturated IBC 384 H (155-355) mcg/dl Transferrin % Sat 4 L (15-50) % Ferritin 7.7 L (8-388) ng/ml Total Bilirubin 0.5 (0.2-1.0) mg/dl AST 12 L (13-39) U/L ALT 13 (7-52) U/L Alkaline Phosphatase 85 (34-104) U/L Lactate Dehydrogenase (86-244) U/L Troponin I High Sens 4.2 (0-14) pg/ml B-Natriuretic Peptide 502 H (0-100) pg/ml Total Protein 7.6 (6.0-8.3) gm/dl Albumin 4.2 (3.4-5.0) gm/dl Globulin 3.4 (2.5-4.0) gm/dl Albumin/Globulin Ratio 1.2 (0.9-2) Vitamin B12 (180-914) pg/ml Folate (>5.38) ng/ml TSH 1.589 (0.300-4.500) uIu/ml Urine Color Urine Appearance (Clear) Urine pH (4.5-7.5) Ur Specific [place] (1.000-1.030) Urine Protein (Negative) Urine Glucose (UA) (Negative) Urine Ketones (Negative) Urine Blood (Negative) Urine Nitrite (Negative) Urine Bilirubin (Negative) Urine Urobilinogen (Negative) Ur Leukocyte Esterase (Negative) Urine WBC (Auto) (0-5) /hpf Urine RBC (Auto) (0-4) /hpf U Hyaline Cast (Auto) (0-5) /lpf U Epithel Cells (Auto) (0-5) /lpf Urine Bacteria (Auto) (Negative) Adenovirus (PCR) (NotDetected) B. pertussis DNA (PCR) (NotDetected) B.parapertussis DNA PCR (NotDetected) C. pneumoniae DNA (PCR) (NotDetected) Coronavirus OC43 (PCR) (NotDetected) Coronavirus HKU1 (PCR) (NotDetected) Coronavirus 229E (PCR) (NotDetected) SARS-CoV-2 (PCR) (NotDetected) Coronavirus NL63 (PCR) (NotDetected) Human Metapneumovir PCR (NotDetected) Influenza Type A (PCR) (NotDetected) Influenza Type B (PCR) (NotDetected) M. pneumoniae (PCR) (NotDetected) Parainfluenza 1 (PCR) (NotDetected) Parainfluenza 2 (PCR) (NotDetected) Parainfluenza 3 (PCR) (NotDetected) Parainfluenza 4 (PCR) (NotDetected) RSV (PCR) (NotDetected) Entero/Rhino (PCR) (NotDetected) Blood Type O Positive Blood Type Recheck O Positive Antibody Screen NEGATIVE Crossmatch See Detail 08/11/23 Range/Units 17:34 WBC (4.8-10.8) K/ul RBC (4.20-5.40) M/uL Hgb (12.0-16.0) g/dl Hct (37.0-47.0) % MCV (80.0-100.0) fL MCH (25.0-34.0) pg MCHC (32.0-36.0) g/dL RDW Std Deviation (36.4-46.3) fL RDW Coeff of Zia (11.5-14.5) % Plt Count (130-400) K/uL Immature Gran % (Auto) % Neut % (Auto) % Lymph % (Auto) % [place] % (Auto) % Eos % (Auto) % Baso % (Auto) % Neut # (Auto) (1.40-6.50) K/uL Lymph # (Auto) (1.20-3.40) K/uL [place] # (Auto) (0.11-0.59) K/uL Eos # (Auto) (0.00-0.50) K/uL Baso # (Auto) (0.00-0.20) K/uL Immature Gran # (Auto) (0.01-0.20) K/uL Polychromasia Hypochromasia Anisocytosis Microcytosis PT (9.0-12.0) Seconds INR (0.9-1.1) APTT (21-31) Seconds PTT Ratio Carboxyhemoglobin % THgb Sodium (136-145) mmol/L Potassium (3.5-5.1) mmol/L Chloride (98-107) mmol/L Carbon Dioxide (21-32) mmol/L Anion Gap (3-11) BUN (6-23) mg/dl Creatinine (0.6-1.2) mg/dl Est Cr Clr Drug Dosing ml/min Est GFR ( Amer) ml/min Est GFR (Non-Af Amer) ml/min BUN/Creatinine Ratio (10-20) Glucose (70-99(Fasting)) mg/dl Calcium (8.6-10.3) mg/dl Magnesium (1.7-2.4) mg/dl Iron (35-150) mcg/dl TIBC (250-450) mcg/dl Unsaturated IBC (155-355) mcg/dl Transferrin % Sat (15-50) % Ferritin (8-388) ng/ml Total Bilirubin (0.2-1.0) mg/dl AST (13-39) U/L ALT (7-52) U/L Alkaline Phosphatase (34-104) U/L Lactate Dehydrogenase (86-244) U/L Troponin I High Sens (0-14) pg/ml B-Natriuretic Peptide (0-100) pg/ml Total Protein (6.0-8.3) gm/dl Albumin (3.4-5.0) gm/dl Globulin (2.5-4.0) gm/dl Albumin/Globulin Ratio (0.9-2) Vitamin B12 (180-914) pg/ml Folate (>5.38) ng/ml TSH (0.300-4.500) uIu/ml Urine Color Urine Appearance (Clear) Urine pH (4.5-7.5) Ur Specific [place] (1.000-1.030) Urine Protein (Negative) Urine Glucose (UA) (Negative) Urine Ketones (Negative) Urine Blood (Negative) Urine Nitrite (Negative) Urine Bilirubin (Negative) Urine Urobilinogen (Negative) Ur Leukocyte Esterase (Negative) Urine WBC (Auto) (0-5) /hpf Urine RBC (Auto) (0-4) /hpf U Hyaline Cast (Auto) (0-5) /lpf U Epithel Cells (Auto) (0-5) /lpf Urine Bacteria (Auto) (Negative) Adenovirus (PCR) Not Detected (NotDetected) B. pertussis DNA (PCR) Not Detected (NotDetected) B.parapertussis DNA PCR Not Detected (NotDetected) C. pneumoniae DNA (PCR) Not Detected (NotDetected) Coronavirus OC43 (PCR) Not Detected (NotDetected) Coronavirus HKU1 (PCR) Not Detected (NotDetected) Coronavirus 229E (PCR) Not Detected (NotDetected) SARS-CoV-2 (PCR) Not Detected (NotDetected) Coronavirus NL63 (PCR) Not Detected (NotDetected) Human Metapneumovir PCR Not Detected (NotDetected) Influenza Type A (PCR) Not Detected (NotDetected) Influenza Type B (PCR) Not Detected (NotDetected) M. pneumoniae (PCR) Not Detected (NotDetected) Parainfluenza 1 (PCR) Not Detected (NotDetected) Parainfluenza 2 (PCR) Not Detected (NotDetected) Parainfluenza 3 (PCR) Not Detected (NotDetected) Parainfluenza 4 (PCR) Not Detected (NotDetected) RSV (PCR) Not Detected (NotDetected) Entero/Rhino (PCR) Not Detected (NotDetected) Blood Type Blood Type Recheck Antibody Screen Crossmatch Diagnostic Findings Chest X-Ray 08/11/23 16:59 XR chest 1V portable CLINICAL HISTORY: Dyspnea TECHNIQUE: Single frontal radiograph of the chest was obtained. Comparison: None available at the time of this dictation. FINDINGS: No lines and tubes are seen. Cardiomegaly is noted. The aortic arch is calcified. The lungs are clear. No evidence of pleural effusion or pneumothorax. IMPRESSION: No acute abnormalities and in particular no radiographic evidence of pneumonia. ACT 112: Negative or not required by law. Electronically signed by: Lalit Esposito M.D. 08/11/2023 6:32 PM Abdomen/Pelvis CT 08/11/23 21:16 Exam(s): CT ABDOMEN + PELVIS Without Contrast EXAM: CT Abdomen and Pelvis Without Intravenous Contrast CLINICAL HISTORY: Reason for exam: Retroperitoneal bleed r/o. TECHNIQUE: Axial computed tomography images of the abdomen and pelvis without intravenous contrast. Automated exposure control was utilized for the study. A dose lowering technique was utilized adhering to the principles of ALARA. COMPARISON: No relevant prior studies available. FINDINGS: Lung bases: Unremarkable. No mass. No consolidation. Mediastinum: Moderate hiatal hernia which contains a proximal stomach. ABDOMEN: Liver: Unremarkable. No focal hepatic lesion. Gallbladder and bile ducts: Unremarkable. No calcified stones. No ductal dilation. Pancreas: Unremarkable. No ductal dilation. Spleen: Unremarkable. No splenomegaly. Adrenals: Unremarkable. No mass. Kidneys and ureters: Parapelvic cysts. No hydronephrosis or obstructive uropathy. Stomach and bowel: Diverticulosis, without acute diverticulitis. No small bowel obstruction. No free intraperitoneal air. PELVIS: Appendix: No findings to suggest acute appendicitis. Bladder: Decompressed urinary bladder. No stones. Reproductive: Calcified left adnexal/ovarian lesion measures 2.2 x 1.7 cm. ABDOMEN and PELVIS: Intraperitoneal space: Unremarkable. No free air. No significant fluid collection. Bones/joints: Degenerative changes of the spine. No acute fracture. No dislocation. Soft tissues: Unremarkable. Vasculature: Atherosclerotic changes of the aorta. No abdominal aortic aneurysm. Lymph nodes: Unremarkable. No enlarged lymph nodes. IMPRESSION: 1. No hydronephrosis or obstructive uropathy. 2. Calcified left adnexal/ovarian lesion measures 2.2 x 1.7 cm. 3. Moderate hiatal hernia which contains a proximal stomach. 4. Diverticulosis, without acute diverticulitis. No small bowel obstruction. No free intraperitoneal air. Electronically signed by: Jani Vivar MD 08/12/23 01:25 AM Chest X-Ray 08/12/23 10:54 XR chest 1V portable HISTORY: Shortness of breath. f/u, eval pulm congestion COMPARISON: Chest 08/11/2023. FINDINGS: No pneumothorax. No pleural effusions. The heart remains enlarged. No new focal lung consolidations to suggest a pneumonia. There are calcifications within the aortic knob. No acute fractures identified. There is mild central pulmonary vascular congestion without overt edema. There is a moderate hiatus hernia. IMPRESSION: Cardiomegaly and mild central pulmonary vascular congestion without overt edema. This is similar to the prior study. ACT 112: Negative or not required by law. Electronically signed by: Vance Kevin M.D. 08/12/2023 1:54 PM PG Care Time/CCT Total # of Minutes Spent Total Time Spent with Patient: Total time spent is greater than 50% in coordination of care (as documented) at patient's floor/unit and/or counseling patient: Coding Level of Care Code 77084 SUB INP/OBS CARE 3/50MIN Diagnoses LARA (dyspnea on exertion) R06.09 Anemia D64.9 Arthritis M19.90 Insomnia, persistent G47.00 Hypothyroidism E03.9 Anxiety F41.9 CKD (chronic kidney disease) stage 3, GFR 30-59 ml/min N18.3 Hypertension I10
[2023-08-12 09:41] LABS: Folate (Folic Acid),Ser orPlas 11.39 ng/ml (>5.38)
[2023-08-12] MEDS: PANTOprazole 40 MG TAB PO SCH ×2 (10:36→22:34)
[2023-08-12] MEDS ORDERED: POTASSIUM CHLORIDE CRTAB 20 MEQ TABCR PO STA (12:47)
[2023-08-12] MEDS ORDERED: FUROSEMIDE 40 MG/4 ML VIAL IV ONE (12:47)
[2023-08-12 13:22] LABS: Hematocrit (blood only) 27.9 % (37.0-47.0); Hemoglobin 8.3 g/dl (12.0-16.0)
--- NOTE | 2023-08-12 13:55 | XRay Report ---
XR chest 1V portable HISTORY: Shortness of breath. f/u, eval pulm congestion COMPARISON: Chest 08/11/2023. FINDINGS: No pneumothorax. No pleural effusions. The heart remains enlarged. No new focal lung consol idations to suggest a pneumonia. There are calcifications within the aortic knob. No acute fractures identified. There is mild central pulmonary vascular congestion without overt edema. There is a moder ate hiatus hernia. IMPRESSION: Cardiomegaly and mild central pulmonary vascular congestion without overt edema. This is similar to t he prior study. ACT 112: Negative or not required by law. Electronically signed by: Vance Kevin M.D. 08/12/2023 1:54 PM
[2023-08-12] MEDS ORDERED: IRON SUCROSE 300 MG in SODIUM CHLORIDE 0.9% 250 ML IV ONE (14:00)
[2023-08-12] MEDS: CYANOCOBALAMIN (B-12) 500 MCG TABLET PO SCH (14:52)
--- NOTE | 2023-08-12 16:37 | XCELERA ---
[id number]
[2023-08-12] MEDS ORDERED: MAGNESIUM OXIDE 400 MG TAB PO SCH (21:00)
--- NOTE | 2023-08-12 21:01 | Billing Data ---
Date of Service August 12, 2023 Coding Level of Care Code 51215 INT INP/OBS CARE
[2023-08-12] MEDS: ALPRAZolam 0.5 MG TABLET PO PRN (22:32)
[2023-08-12] MEDS: TERAZOSIN HCL 1 MG CAP PO SCH (22:34)
[2023-08-13] MEDS: ALPRAZolam 0.5 MG TABLET PO PRN (05:13)
[2023-08-13] MEDS: LEVOTHYROXINE SODIUM 112 MCG TABLET PO SCH (05:13)
[2023-08-13] MEDS ORDERED: HALOPERIDOL LACTATE 5 MG/ML 1 ML VIAL IM STA (05:55)
--- NOTE | 2023-08-13 09:53 | Gastrointestinal Consultation ---
Date of Consultation August 13, 2023 Assessment & Plan (1) Anemia: Patient is a 78 year old female admitted with SOB and low hgb. She reports no signs of GI bleeding. she tells me she has been anemic in the past and follows labs with her pcp. - I discussed with the patient about colonoscopy or EGD to further evaluate anemia and she is not interested in this. she tells me she is going home today. I offered to have her follow up as an outpatient for testing but she was not interested in this. I offered follow up office visit in our office but she tells me she plans to just follow with pcp. - I advised the patient she should use her protonix 40mg once daily instead of as needed. - recommend avoidance of nsaids. - I advised her to reach out to our office if she changes her mind and wishes to have further GI evaluation. Supervising Physician Co-Signing Physician Notes Agree with ROLLY Geronimo as above Abd: Soft, NT, ND, +BS Continue current therapy and supportive care Patient refuses any invasive workup at this time. History of Present Illness Reason for Consultation: anemia, SOB, hgb 6 on admission Requesting Physician: Nohelia Muniz PA-C Attending Physician: Madhu Liao MD History of Present Illness Patient is a 78 year old female with a past medical history of fibromyalgia, hypothyroidism, acid reflux, anxiety, arthritis, CKD stage III, depression, eczema, insomnia, and HLD. She presented to the ED for worsening SOB with exertion with an acute exacerbation over the past couple weeks. Recently she had been diagnosed with bronchitis. She reportedly has had dyspnea on exertion which has been progressively worsening over the past 1.5 years. GI was consulted to see due to low hgb on admission. She tells me that she has had anemia in the past but is not sure how her blood counts usually run. She tells me she follows with her pcp on this. since admission she was given 2 units of PRBC and her hgb had improved to 8.3. She can get some heartburn at home and admits to using protonix 40mg as needed. she denies any nausea, vomiting, abdominal pain, changes in bowels, blood in the stools, or melena. she has not had an EGD or colonoscopy in the past and she tells me that she has no interested in any GI work up at this time. Allergies Allergy/AdvReac Type Severity Reaction Status Date / Time amlodipine [From [facility]] Allergy Severe "TIGHT Verified 08/11/23 18:43 THROAT" Iodinated Contrast Media Allergy Rash Verified 08/11/23 18:43 iodine Allergy Rash Verified 08/11/23 18:43 Home Medications Medication Instructions Recorded Confirmed Type magnesium oxide 500 mg tablet 500 mg PO QPM 02/22/19 08/11/23 History calcium 600 mg capsule 600 mg PO TID 11/15/20 08/11/23 History lutein 20 mg capsule 20 mg PO QPM 11/15/20 08/11/23 History vitamin E 200 unit capsule 200 unit PO DAILY 02/11/22 08/11/23 History minoxidil 10 mg tablet 10 mg PO DAILY #90 tabs 01/21/23 08/11/23 Rx mirtazapine 45 mg tablet 45 mg PO HS #90 tabs 02/04/23 08/11/23 Rx terazosin 2 mg capsule 2 mg PO HS #90 caps 02/05/23 08/11/23 Rx levothyroxine 112 mcg tablet 112 mcg PO DAILY #90 tabs 04/17/23 08/11/23 Rx pantoprazole 40 mg tablet,delayed 40 mg PO DAILY PRN Acid Reflux 06/10/23 08/11/23 History release hydrocodone 7.5 mg-acetaminophen 1 tab PO QID PRN pain #100 tabs 07/15/23 08/11/23 Rx 325 mg tablet alprazolam 1 mg tablet 1 mg PO TID PRN anxiety #90 tabs 07/28/23 08/11/23 Rx zolpidem 10 mg tablet 10 mg PO HS #30 tabs 07/28/23 08/11/23 Rx atenolol 100 mg tablet 100 mg PO DAILY 08/11/23 08/11/23 History coenzyme Q10 100 mg capsule (Co 100 mg PO DAILY 08/11/23 08/11/23 History Q-10) losartan 100 mg tablet 100 mg PO DAILY 08/11/23 08/11/23 History tramadol 50 mg tablet 50 mg PO TID PRN pain 08/11/23 08/11/23 History Patient History Medical History (Updated 08/11/23 @ 20:12 by Vance Alexandre PA-C) Cervical radiculopathy Degenerative disc disease, cervical Osteoarthritis Anxiety and depression Tarsal tunnel syndrome "IN MY FEET" Insomnia Environmental and seasonal allergies Acid reflux Fibromyalgia Hypothyroidism Lumbar degenerative disc disease Hypertension Surgical History Nausea and vomiting after administration of anesthetic agent History of thyroidectomy, subtotal D/T OVERACTIVE THYROID History of tooth extraction History of endoscopic sinus surgery History of breast biopsy (1991) BENIGN History of total knee arthroplasty (2007) LEFT Family History Mother Hypertension Father Lung cancer Other No family history of adverse response to anesthesia Denies family history of Colon cancer Ovarian cancer Prostate cancer Myocardial infarction Breast cancer Colorectal cancer Social History Smoking Status: Never smoker Second Hand Exposure: No; Do You Dip or Chew Tobacco: No; Hx Alcohol Use: Yes Alcohol type: wine Hx Substance Use: No Preferred Language: Ukrainian Communication Ability: Effective Visual Impairment: No Limitations Hearing Ability: Normal Animal Anatomy Teacher Required: No Beliefs That Will Affect Care: None marital status: Current Living Situation: Spouse current occupational status: retired Feels Safe at Home: Yes Childhood Exposure to Second-Hand Smoke: Yes Diet: regular Dental Care, Regularly: No Physical Activity Frequency: Does not Exercise Seatbelt Use: always Sunscreen Use: No Do you think of yourself as: straight/heterosexual Assistive Devices: None Review of Systems Review of Systems: All systems reviewed & are unremarkable except as noted in HPI & below Physical Exam Constitutional: WD/WN, vitals as above Respiratory: normal respiratory effort, lungs clear to auscultation Cardiovascular: RRR, no murmur, no edema Gastrointestinal (Abdomen): normal bowel sounds, soft, nontender, no hepatosplenomegaly Skin: no rashes, warm and dry Psychiatric: Orientation: alert and oriented x 3 Results & Data Vital Signs (Past 12 Hours) Vital Signs Temp Pulse Pulse Resp BP BP Pulse Ox 08/13/23 04:57 98.4 F 45 L 16 177/67 H 97 08/12/23 23:42 98.2 F 47 L 17 161/77 H 94 08/12/23 23:00 46 L O2 Del Method 08/13/23 04:57 Room Air 08/12/23 23:42 Room Air 08/12/23 23:00 PG Care Time/CCT Total # of Minutes Spent Total Time Spent with Patient: Total time spent is greater than 50% in coordination of care (as documented) at patient's floor/unit and/or counseling patient: Coding Level of Care Code 36159 INT INP/OBS CARE 1/40MIN Diagnoses Anemia D64.9
[2023-08-13] MEDS: CYANOCOBALAMIN (B-12) 500 MCG TABLET PO SCH (11:57)
[2023-08-13] MEDS: LOSARTAN POTASSIUM 50 MG TAB PO SCH (11:57)
[2023-08-13] MEDS: ATENOLOL 50 MG TABLET PO SCH (11:57)
[2023-08-13] MEDS: PANTOprazole 40 MG TAB PO SCH (11:57)
--- NOTE | 2023-08-13 15:51 | Discharge Summary ---
Discharge Summary Date of Service August 13, 2023 Notes For Next Care Provider Cee was very anxious to leave the hospital, and left before we were able to complete her full workup for her anemia. She did receive 2 units of blood in the ER. She is going to need EGD/colonoscopy with GI. Her echo also showed severe pulmonary hypertension, for which she will need to follow-up with cardiology. During her stay she was very worried about her and his health and if it would be his last Emil and stated that she needed to be home with him. 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 we did an informal walk test prior to discharge, and she was not dropping her o2 saturations or requiring any oxygen. We discussed that she needed to see her PCP, Dr. Kumar, within a week. Encouraged her to take her pantoprazole daily. Avoid NSAIDs. Medication Changes From Visit -Vit B12 replacement - Protonix daily, not as needed Admission HPI Per Admitting Provider Cee is a pleasant 78-year-old female with PMH of fibromyalgia, hypothyroidism, acid reflux, anxiety, arthritis, CKD stage III, depression, eczema, insomnia, and HLD. She presented for worsening SOB with exertion with an acute exacerbation over the past couple weeks. She has had LARA progressively worsening over the past 1.5 years. It is exacerbated by taking steps, bending, and walking. She denies chest pain. No ambulatory assist devices. Of note, she was at the ED in [place] for fever and productive cough on 08/06 and was diagnosed with bronchitis and started on amoxicillin 825mg q12h, which she has been taking. She was told to follow-up with a electric motor controls assembler. Her fever and productive cough have largely resolved, but she notes that she is still having LARA. No at home oxygen use or CPAP. No sick contacts. She reports she has not been eating/drinking well since having dental work done; only doing soft foods for her teeth. She does not believe she has had any prior echocardiograms. Patient is mildly bradycardic at 55 bpm; vitals otherwise stable. ED course: Pantoprazole 40 mg IV Pepcid 20 mg IV NSS 250 mL Blood transfusion 2u pRBCs started in the ED ROS: Patient endorses fever (resolved), productive cough (yellow sputum production), sinus pressure, nasal drainage, dizziness, lightheadedness, LARA, numbness/tingling in left wrist (secondary to carpal tunnel). Patient denies CABRERA, chest pain, chest palpitations, abdominal pain, N/V/D, urinary s/s, burning with urination, blood in the urine or stool, melena, dark t arry stool, or numbness & tingling down legs. Patient denies PMH of ID, CVA, DVT/PE, diabetes, and cancer. Principal Dx & Hospital Course #1 = Principal Diagnosis (1) LARA (dyspnea on exertion): -LARA x 1.5 years -Acute worsening in setting of bronchitis; patient was recently at [place] ED on 08/06 and discharged on Augmentin 825-125 mg BID, which she has been taking x 5 days -CXR on 08/11 revealed NAF without evidence of pneumonia -BNP elevated at 502 -Did not receive diuretics during her stay -Echo with ER 65-70%, moderate LVH, Mild MR and TR, Moderate pericardial Effusion and Severe Pulmonary HTN --> will need Cardiology follow up -Cardiology consulted, but was unable to see patient given situation - BioFire negative - EKG revealed sinus bradycardia at 58 bpm; QTc 420 (2) Anemia: - Hgb 6.0 and Hct 23.1 --> 2 units PRBCs given in the ED - Repeat CBC not done 08/13 as patient refused. - No recent falls, trauma, dark/tarry stools, or signs of active bleeding -CT abdomen/pelvis: ovarian mass --> will need pelvic US, CA-125/OVA1 -Iron panel ordered --> patient refused -Pantoprazole 40 mg encouraged to take daily. Unclear etiology; ?anemia of chronic disease (3) Arthritis: Hx of chronic pain Home hydrocodoneacetaminophen - patient says she has not been needing it QID prn Acetaminophen 650 mg p.o. q4h as needed for pain Stop Tramadol (4) Insomnia, persistent: Continue alprazolam, lutein, and zolpidem at night (5) Hypothyroidism: Continue levothyroxine (6) Anxiety: Continue alprazolam as needed for anxiety (7) CKD (chronic kidney disease) stage 3, GFR 30-59 ml/min: BUN 15, creatinine 1.19 (baseline 1.12), and EGFR 43.7 on arrival Avoid nephrotoxic agents (8) Hypertension: Continue atenolol Okay to continue losartan (9) Pulmonary hypertension: (10) Iron deficiency anemia: Plan Patient was discharged after refusal of most care we attempted to provide for her. Will need very close follow up with PCP. Instructed on when to return to the ER. Patient aware very high risk, but states she needs to be home with her for awhile and then will come back or go to a different hospital. Updated Medication List Medication Instructions Recorded Confirmed Type magnesium oxide 500 mg tablet 500 mg PO QPM 02/22/19 08/15/23 History calcium 600 mg capsule 600 mg PO TID 11/15/20 08/15/23 History lutein 20 mg capsule 20 mg PO QPM 11/15/20 08/15/23 History vitamin E 200 unit capsule 200 unit PO DAILY 02/11/22 08/15/23 History mirtazapine 45 mg tablet 45 mg PO HS #90 tabs 02/04/23 08/15/23 Rx levothyroxine 112 mcg tablet 112 mcg PO DAILY #90 tabs 04/17/23 08/15/23 Rx hydrocodone 7.5 mg-acetaminophen 1 tab PO QID PRN pain #100 tabs 07/15/23 08/15/23 Rx 325 mg tablet alprazolam 1 mg tablet 1 mg PO TID PRN anxiety #90 tabs 07/28/23 08/15/23 Rx zolpidem 10 mg tablet 10 mg PO HS #30 tabs 07/28/23 08/15/23 Rx atenolol 100 mg tablet 100 mg PO DAILY 08/11/23 08/15/23 History coenzyme Q10 100 mg capsule (Co 100 mg PO DAILY 08/11/23 08/15/23 History Q-10) losartan 100 mg tablet 100 mg PO DAILY 08/11/23 08/15/23 History tramadol 50 mg tablet 50 mg PO TID PRN pain 08/11/23 08/15/23 History cyanocobalamin (vitamin B-12) 500 1,000 mcg (2 x 500 mcg) PO QAM #30 08/13/23 08/15/23 Rx mcg tablet tabs pantoprazole 40 mg tablet,delayed 40 mg PO DAILY Acid Reflux #30 tabs 08/13/23 1 10/16/22 Rx release minoxidil 10 mg tablet See Rx Instructions .Route 08/14/23 08/15/23 Rx .COMPLEX #90 tabs terazosin 2 mg capsule See Rx Instructions .Route 08/14/23 08/15/23 Rx .COMPLEX #90 caps Hospital Stay Data Consultations 08/11/23 18:40 ED Decision to Admit Stat 08/12/23 10:53 Consult Gastroenterology Routine 08/12/23 16:50 Consult Cardiology Routine Diagnostic Imagining Performed 08/11/23 21:16 CT Abdomen and Pelvis [CT abd pelvis wo con] Stat Pending Results Patient Have Any Pending Studies at Discharge: No Discharge Instructions Given to Patient (Per Discharging Provider) Ms. Kacey springer were hospitalized after having shortness of breath for 1.5 years. in the ER it was found that you are profoundly anemic, your hemoglobin was 6.0. You received 2 units of blood in the ER, which caused her hemoglobin to rise. However we were unable to check the stability of this as you declined her labs this morning. Also during your workup we found an ovarian mass on the CT scan. This needs to be followed up with a pelvic ultrasound. Your primary care can order this, but you will need to follow-up with the load dispatcher. It is very likely that your anemia is coming from a GI source, as there is no other clear evidence of bleeding. You will need close follow-up with the GI and will likely need an EGD and colonoscopy to evaluate this. You should see them within the month. They also recommended that you take your Protonix daily instead of taking as needed. Do not take NSAIDs (ibuprofen, Aleve, naproxen, etc.). we also did an echocardiogram, an ultrasound of your heart. This showed severe pulmonary hypertension and a pericardial effusion. These conditions can also be attributing to why you have been feeling so poorly. These can be very serious, and need to be followed up. I have attached the information for the cardiology office so you can follow-up with them. I would recommend you see them within the next few weeks. you have very serious conditions, and it is very important that these are followed up. although that we would like you to stay for further workup, you have made it very clear that you would like to leave the hospital. We agreed that you would see Dr. Kumar within the next week. You are at very high risk, if you develop any new or worsening symptoms. Noticed bright red blood in your stool or dark tarry stools, have shortness of breath or any chest pain please return to the ER immediately Total Time Total Time Spent Total Time Spent (In Minutes): 120 Supervising Physician Co-Signing Physician Notes Attending Attestation and Discharge Note: Pt seen/examined, chart reviewed, care plan d/w EITAN Fajardo. I agree with the glez components of her discharge documentation. 78yo female with HTN and hypothyroidism who presented with dyspnea on exertion and fatigue. Noted to be severely anemic with microcytosis - presenting hemoglobin 6 with MCV 61. Fe studies c/w severe Fe deficiency. Ferritin - 7.7. Also B12 def - 187. s/p 2 units PRBCs without incident. She felt better from pulmonary standpoint after her blood transfusion. Echo was completed - EF preserved; severe pulmonary HTN noted. She was seen by [facility] - declined endoscopic evaluation but willing to undergo such as outpatient. [facility] Cardiology was consulted due to her dyspnea and echo findings. Patient was adamant about discharge home and thus formal cardiology evaluation was NOT completed prior to her discharge. She is willing to see cardiology shortly after discharge. By report the patient had had mild confusion the night prior to discharge home. She required a dose of antipsychotic. Patient recalls all details of the evening. Apparently her sleep habits are very different than most people. She stays up m uch of the night at home and goes to bed early in the am. She states that being up most of the night (like what we saw here) is not atypical for her. During my assessment I performed a thorough mental status evaluation. She was oriented to person, place, and time. She was able to recite the months of the year backwards with only 1 mistake. She could recall nearly all events of her brief hospital stay. When asked what she would do if she got sick at home she said "I would come back to the hospital." Thus, she retained capacity to make decisions on her own behalf. Discharge exam - gen - sitting at side of bed, looks tired but is awake/alert/following commands mouth - MMM neck - no JVD skin - generalized pallor heart - RRR, s1 s2, 1/6 systolic murmur LSB lungs - CTA b/l abd - soft NT ND BS+; no HSM ext - pulses 2+ b/l psych - a/o x 3 A/P: 1. chronic iron deficiency anemia 2. dyspnea on exertion - 2nd to #1, pulmonary HTN, potentially other causes 3. severe pulmonary HTN - etiology?? undiagnosed THERESA? other? 4. HTN 5. ?transient confusion overnight - resolved 6. vitamin B12 deficiency although she should have endoscopic evaluation prior to d/c home and ideally ca rdiology formally eval her it is not unreasonable nor unsafe to d/c patient home she is hemodynamically stable with normal O2 sats in room air iron deficiency is chronic patient counseled she will need close PCP, cardiology, and GI f/u shortly after discharge patient voices understanding she will need repeat cbc shortly after discharge to ensure stability consider outpatient IV venofer for severe Fe def Madhu Liao MD Coding Level of Care Code 67379 INP/OBS DISCH >30 MIN Diagnoses LARA (dyspnea on exertion) R06.09 Anemia D64.9 Arthritis M19.90 Insomnia, persistent G47.00 Hypothyroidism E03.9 Anxiety F41.9 CKD (chronic kidney disease) stage 3, GFR 30-59 ml/min N18.3 Hypertension I10 Pulmonary hypertension I27.20 Iron deficiency anemia D50.9
--- NOTE | 2023-08-14 05:39 | Electrocardiogram Report ---
Test Reason : Blood Pressure : / mmHG Vent. Rate : 058 BPM Atrial Rate : 058 BPM P-R Int : 192 ms QRS Dur : 078 ms QT Int : 428 ms P-R-T Axes : 053 -23 040 degrees QTc Int : 420 ms Sinus bradycardia Low voltage QRS Septal infarct , age undetermined Abnormal ECG No previous ECGs available Confirmed by Daren Mao ([id number]) on 08/14/2023 5:38:42 AM Referred By: REFERRED SELF Confirmed By:Daren Mao
== END 2023-08-13 16:36 | disposition home or self-care (01) | DRG 202 ==
LOC: ED 16:20 → SUATTDRO 21:01 → INTOOBSV 21:01 → EDINP 21:01 → 4W 08-12 15:47